=== PATIENT | female | born 1955 | race African-American/Black ===

== ENCOUNTER 2016-07-17 10:00 | Emergency (ER) | payer OTHER ==
[~2016-07-17] VITALS: Ht 162.6 cm; Wt 111.9 kg
[2016-07-17 10:24] VITALS: BP 173/91
== END 2016-07-17 12:19 | disposition home or self-care (01) ==
LOC: EME 10:00
DX: R45.0 Nervousness (principal); I10 Essential (primary) hypertension; V49.40XA Driver injured in collision with unspecified motor vehicles in traffic accident, initial encounter
CPT/HCPCS: 99281; 99282